=== PATIENT | female | born 1985 | race Caucasian/White ===

== ENCOUNTER 2016-06-08 04:49 | Inpatient (IN) | payer OTHER ==
[~2016-06-08] VITALS: Ht 170.2 cm; Wt 108.4 kg
[2016-06-08] MEDS ORDERED: Lactated Ringer's 1,000 ML IV PRN (05:03)
[2016-06-08] MEDS ORDERED: Sodium Chloride LOK Flush 10 mL Syringe IVFLUSH PRN (05:05)
[2016-06-08] MEDS ORDERED: Penicillin G K Inj 5,000,000 UNITS in Dextrose 5% Minibag Plus 100 ML IV ONE (05:05)
[2016-06-08] MEDS ORDERED: Oxytocin 30 Units/500 mL LR 30 UNITS in IV Premix 1 EACH IV PRN ×2 (05:05→09:20)
[2016-06-08] MEDS ORDERED: Oxytocin 10 Unit/mL Inj IM PRN ×2 (05:05→09:20)
[2016-06-08] MEDS ORDERED: Hemorrhage Kit, Post Partum XX ONE ×2 (05:05→09:20)
[2016-06-08] MEDS ORDERED: Carboprost 250 mCg/mL Inj IM PRN ×2 (05:05→09:20)
[2016-06-08] MEDS ORDERED: Methylergonovine 0.2 mg/mL Inj IM PRN ×2 (05:05→09:20)
[2016-06-08] MEDS ORDERED: Lactated Ringer's 1,000 ML IV SCH ×2 (05:45→09:17)
[2016-06-08] MEDS ORDERED: Atropine 1 mg/10 mL (Code) Syringe IVPUSH PRN (05:45)
[2016-06-08] MEDS ORDERED: fentaNYL 2 mCg/mL-Bupiv 0.125% 100 ML EPIDURAL SCH (05:45)
[2016-06-08] MEDS ORDERED: Ondansetron 2 mg/mL 2 mL Inj IVPUSH PRN (05:45)
[2016-06-08] MEDS ORDERED: Lactated Ringer's 500 ML IV ONE (05:45)
[2016-06-08] MEDS ORDERED: EPHEDrine Sulfate 50 mg/mL Inj IVPUSH PRN (05:45)
[2016-06-08 06:03] LABS: Mean Corpuscular Hemoglobin 30.6 pg (27.0-35.0); Mean Corpuscular Volume 91.7 fL (81-100)
--- NOTE | 2016-06-08 06:37 | PCM.HPANE ---
Patient Data Date of Service: Jun 08, 2016 Surgeon Admitting Provider:Babak Whitney MD Attending Provider:Babak Whitney MD Primary Care Physician:Babak Whitney MD Other Provider:Laura Marinelli Anesthesia Reason for Visit Term Labor TERM LABOR Ht/WT & BMI Weight (Kilograms): 108 Body Mass Index 37.4 Allergies Coded Allergies: No Known Allergies (Unverified Allergy, Unknown, 10/25/15) Diabetes History Hx Diabetes?: No MRSA MRSA: No Medications Hypertension Medication: No Home Meds Incl Beta Kevin: No History History of ENT Problems?: No Hx of Heart Problems?: No Hx of Respiratory Problem?: No Hx Neurologic Problems?: No Hx of GI Problems?: No Hx of Problems?: No HX of Peritoneal Dialysis: No Hx Musculoskeletal Problems?: No Hx of Psycho/Social Problems?: No Hx Surgeries?: No Hx Any Other Health Problems?: No Hx Diabetes: No Hx Alcohol Use: NoHx Substance Use: No Smoking Status: Never Smoker Have You Smoked inLast 12 mo: No Stop/Bang Treated for Sleep Apnea?: No Do You Have a CPAP Machine?: No JAZMIN Risk Assessment: Low Risk, <3 Yes Risk Assessment Category Category 1A: Patient has history of documented sleep apnea, and HAS NOT received any narcotic, sedative or anesthesia administration during this stay. Category 1B: Patient has history of documented sleep apnea, and HAS received any narcotic , sedative or anesthesia administration during this stay Category 2: Patient has SUSPECTED Obstructive Sleep Apnea, and HAS received any narcotic , sedative or anesthesia administration during this stay. Category 3: Patient has SUSPECTED Obstructive Sleep Apnea and HAS NOT received narcotic, sedative or anesthesia administration during this stay. Category 4: Outpatient in Procedural Areas with known sleep apnea or who screen positive for High Risk via the STOP/BANG questionnaire. Exam Exam General Appearance: Alert, Oriented X3, Cooperative HEENT/AIRWAY: MP 2, Neck Movement (Full), Mouth Opening (Wide) Lungs: Clear to Auscultation, Normal Air Movement Heart: Regular Rate/Rhythm, Normal S1, Normal S2 Meds/Labs/Diagnostics Labs Plt 136 Plan Impression Patient chart reviewed, patient interviewed and anesthestic plan with risks, benefits, and alternatives discussed, and informed consent obtained. NPO Status: L&D Protocol ASA Physical Status: ASA2 Mod Systemic Disease Anesthetic Plan: Epidural Bene/Risks/Altern/Consents: Yes HP Complete Prior to Induction: Yes Mehrdad Santizo MD Jun 08, 2016 05:45
--- NOTE | 2016-06-08 07:27 | PCM.HPOB ---
Subjective Referring Provider: Admitting Physician: Babak Whitney MD Primary Care Physician: Babak Whitney MD Attending Physician: Babak Whitney MD Chief Complaint Active Labor History of Present History of Present Illness 30- year old female at 41 weeks and 3 days gestation by US on 10/25/2015 showing an JG 06/03/16. LMP 08/23/2015 gives an JG of 05/29/2016. She presents to the [facility] after onset of active labor with contractions that started at approximately 02:00 this morning. [facility]. Pt is GBS positive. Denies PMH, PSH, NKDA. On Admit Pt was reported to be dialated at 5 cm and 100% effaced at -2 station. OB History: (2), Para (1) Obstetrical Complications: None Past Medical History Medical History: Denies Surgical History: Denies Hx Tobacco Use: No Past Family History Living Arrangement: with Family Genetic Screening/Counseling Genetic Screening/Counseling: Negative Review of Systems Constitutional: Y: Pain Cardiovascular: Denies: Chest Pain Respiratory: Denies: Cough Gastrointestinal: Reports: Abdominal Pain Medications Home medications Pre vitamins Allergy Coded Allergies: No Known Allergies (Unverified Allergy, Unknown, 10/25/15) Exam Vital Signs BP: 141/70, HR: 74, RR: 18, Temp 99.0 Exam Strong Contractions 3-4 min in between lasting 90 to 100 seconds. HR 130, moderate variability, category 1 tracing Objective 30 year old female presents in active labor in active labor. Constitutional: Well-developed, Well-nourished HEENT: Atraumatic Lungs: Clear to Auscultation, Normal Air Movement Heart: Exam Unremarkable, Regular Rate/Rhythm Abdomen: Gravid Extremities: No Edema Neurological/Psychiatric: Alert, Oriented X3, Cooperative, No Acute Distress Neuro: Grossly Neurologically Intact Labs/Diagnostics Labs WBC - 10.3 Hgb - 11.8 Hct - 35.4 Plt Count - 136 Maternal Blood Type: O (postitive) Hx Rho(D) Immune Globulin: No Antibody Screen: negative Group B Strep Results: Positive Rubella: Immune Lab History: Negative for: Hx Chicken Pox, Hx Gonorrhea, Hx HIV, Hx Herpes, Hx Syphilis OB Intrapartum Assessment/Plan Assessment 30 year old female presents to [facility] in active labor. Problems: (1) Active labor Plan: Continue supportive care and expectant management. Anticipate Vaginal delivery today. Pt is GBS positive, PCN loading dose given. Pt requested and received epidural with effect. Status: Acute ICD Code: [id number] (2) Qualifiers: Weeks of gestation: 41 weeks Qualified Code: O48.0 - Post-term Status: Acute ICD Code: Z33.1 Pain Management: Epidural Pain Evaluation: Adequate Pain Control Attending Statement I agree with the plan above. Patient was admitted in active labor. Blood pressure mildly elevated at admission thought likely related to pain. If BP issues continue to be a problem will evaluate with PIH labs. At this time, she is progressing normally. Epidural is in place and she is comfortable. AROM with return of moderate amount of light meconium stained amniotic fluid was completed. FHT reassuring. Anticipate normal spontaneous vaginal delivery,. MARLEEN SIMPSON DO Jun 08, 2016 06:18 Martha Zabala MD Jun 09, 2016 07:53
[2016-06-08] MEDS ORDERED: Penicillin G K Inj 3,000,000 UNITS in IV Premix 1 EACH IV SCH (08:30)
[2016-06-08] MEDS ORDERED: Sodium Chloride LOK Flush 10 mL Syringe IVFLUSH SCH (08:30)
[2016-06-08] MEDS ORDERED: oxyCODONE-Acetamin 5-325 mg Tablet PO PRN (09:20)
[2016-06-08] MEDS ORDERED: Benzocaine (Dermoplast) 20% 60 Gm Spray TOPICAL PRN (09:20)
[2016-06-08] MEDS ORDERED: Witch Hazel-Glycerin Pads TOPICAL PRN (09:20)
[2016-06-08] MEDS ORDERED: LANOlin HPA 7 Gm Ointment TOPICAL PRN (09:20)
[2016-06-08] MEDS ORDERED: Ascorbic Acid 500 mg Tablet PO SCH (17:30)
[2016-06-09 06:51] LABS: Mean Corpuscular Hemoglobin 29.8 pg (27.0-35.0); Mean Corpuscular Volume 93.2 fL (81-100)
--- NOTE | 2016-06-09 08:41 | OP ---
[address] [address] OPERATIVE REPORT PATIENT: SKY REEVES I : 1985 MR#: [id number] ADMIT: 06/08/2016 JOB ID: [id number] DATE OF SURGERY: 06/08/2016 PREOPERATIVE DIAGNOSIS(ES): 1. A 41+3 week intrauterine , in active labor. 2. Group-B Strep positive status. POSTOPERATIVE DIAGNOSIS(ES): 1. A 41+3 week intrauterine , in active labor. 2. Group-B Strep positive status. PROCEDURE PERFORMED: Spontaneous vaginal delivery of a liveborn male , born on June 08, 2016, at 0827 hours, weighing 10 pounds or 4532 g, with Apgars of 8 at one minute, 9 at five minutes. SURGEON: Martha Zabala MD USABILITY SPECIALIST: None. ANESTHESIA: Epidural and local. ESTIMATED BLOOD LOSS: 500 cc. FLUID REPLACEMENT: Crystalloid in labor. FINDINGS: Liveborn male infant with spontaneous cry and spontaneous movement of all four extremities. COMPLICATIONS: None apparent. INDICATIONS: This 30-year-old, G2, P1-0-0-1 female presented to Labor and Delivery on June 08, 2016, in active labor. She was at 41+3 weeks gestational age, with an EDC of May 29, 2016. was complicated by GBS positive status. She also was post dates as noted above. laboratory data showed blood type O positive. Antibody screen negative, rubella immune, hep B surface antigen negative, RPR, nonreactive, HIV negative, and GBS negative. The patient presented in active labor on the morning of the at 5 cm dilated. She requested an epidural, which was placed. heart tones reactive and reassuring throughout her entire time in Labor and Delivery. After she was comfortable with epidural, artificial rupture of membranes was completed on the morning of the , approximately 3 hours after admission. She did have return of a moderate amount of meconium-stained amniotic fluid. At that time, she was 7 cm. Following this, she quickly progressed to complete, and her epidural wore off quickly and she had a strong desire to put shortly thereafter. PROCEDURE: The patient was noted to be complete, so she was placed in dorsal lithotomy position, prepped and draped in the usual sterile fashion for delivery. She was asked to push, and the head delivered spontaneously in the KWASI position over an intact perineum. Nuchal cord was checked and none was noted. There was some difficulty delivery the anterior arm, which would have been the left arm, and so the patient was placed into Wai' positioning. An attempts at delivering the posterior arm were not successful. The infant delivered shortly thereafter with another attempted gentle downward traction. The anterior shoulder delivered easily, followed by the posterior shoulder, and the remainder of the was then easily delivered. After a 60 second cord clamping and delay, the cord was then clamped and cut. The was passed to the nursing team who were in attendance. Cord blood was then obtained and Pitocin was started per protocol. The placenta delivered intact spontaneously, was passed off the table. Examination of the uterus revealed that the uterus was firm with Pitocin and bimanual massage, and there were no remaining placental membranes within the uterus. Examination of the vaginal vault did not reveal any lacerations. There were two bilateral labial lacerations which were repaired with 4-0 Vicryl in a running nonlocking fashion bilaterally. Good hemostasis was noted following this, and the uterus was firm on bimanual massage. All sponge, needle, and instrument counts were correct. The patient tolerated this procedure well. Recovered in Labor and Delivery with her infant.
--- NOTE | 2016-06-09 09:13 | PCM.PNOBPP ---
Subjective Date of Service Jun 09, 2016 Post : Spontaneous Vaginal Delivery Subjective 30 year old female s/p on 06/08/16 without complication. Mother and baby doing well. Lochia: Normal Pain Management: PO pain meds Gastrointestinal: Good Appetite, No N/V, Passing Flatus Postop Activity: Ambulating Independently Group B Strep Results: Positive Rubella: Immune Blood Type: O RH Type: Positive Labs Laboratory Tests 06/09/16 06:33: White Blood Count 10.3, Red Blood Count 3.25, Hemoglobin 9.7, Hematocrit 30.3, Mean Corpuscular Volume 93.2, Mean Corpuscular Hemoglobin 29.8, Mean Corpuscular Hemoglobin Concent 32.0, Red Cell Distribution Width 13.8, Platelet Count 132 Exam Vital Signs Vital Signs BP: 128/80, HR: 85, RR: 12, Temp: 36.7 Vital Signs: VS reviewed, stable Exam Abdomen: Fundus firm (2-3 finger widths below umbilicus) : Voiding without difficulty Extremities: No tenderness/swelling Lungs: Clear to Auscultation, Normal Air Movement Heart: Exam Unremarkable, Regular Rate/Rhythm General: Alert, Oriented X3, Cooperative OB Post Assessment/Plan Assessment 30 year old female s/p spontaneous vaginal delivery with no complications , mother and baby doing well. Problems: (1) Qualifiers: Weeks of gestation: 41 weeks Qualified Code: O48.0 - Post-term Plan: Delivered baby boy 06/08/2016 at 08:27 without complication. Status: Resolved ICD Code: Z33.1 (2) Normal spontaneous vaginal delivery Plan: Continue supportive care. Mother doing well. Anticipate discharge today to [facility] status secondary to incomplete penicillin prophylactic treatment. Status: Resolved ICD Code: O80 Pain Evaluation: Adequate Pain Control Attending Statement The patient was seen and examined together with Dr. Larkin on 06/09/2016 and I agree with the history, exam and plan as outlined in the note above. / MD CALVIN Lopez GILES A DO Jun 09, 2016 09:13 Babak Whitney MD Jul 15, 2016 16:33
--- NOTE | 2016-06-09 10:11 | PCM.DC.OB ---
Obstetrical Discharge Summary Date of Service Jun 09, 2016 Date of hospital admission Jun 08, 2016 at 05:04 Date of Discharge: Jun 09, 2016 Providers Admitting Physician: Babak Whitney MD Primary Care Physician: Babak Whitney MD Attending Physician: Babak Whitney MD Problems: (1) Qualifiers: Weeks of gestation: 41 weeks Qualified Code: O48.0 - Post-term Plan: Uncomplicated delivery at 41weeks 3 days, discharge to home instable condition. Status: Resolved ICD Code: Z33.1 (2) Normal spontaneous vaginal delivery Plan: Pt gave to healthy baby boy 06/08/2016 at 08:27. Labor progressed normally and was uncomplicated, mother recovering well. Discharge to home in stable condition. Status: Resolved ICD Code: O80 Consultations Anaesthesia Brief History and Physical: 30- year old female at 41 weeks and 3 days gestation by US on 10/25/2015 showing an JG 06/03/16. LMP 08/23/2015 gives an JG of 05/29/2016. She presented to the [facility] after onset of active labor with contractions that started at approximately 02:00 morning of 06/08/2016. [facility]. Pt is GBS positive. Denies PMH, PSH, NKDA. On Admit Pt was reported to be dilated at 5 cm and 100% effaced at - 2 station. Physical Exam: Vital Signs: BP: 128/80, HR: 85, RR: 12, Temp: 36.7 Abdomen: Fundus firm (2-3 finger widths below umbilicus) : Voiding without difficulty Extremities: No tenderness/swelling Lungs: Clear to Auscultation, Normal Air Movement Heart: Exam Unremarkable, Regular Rate/Rhythm General: Alert, Oriented X3, Cooperative Hospital Course: 30 year old female Presented to [facility] on the morning of 06/08/16 in active labor at 5 cm dilation after having her membranes stripped on 06/05/2016. Her has been reported to be uncomplicated. GBS was positive and received the loading dose of PCN before delivery, second dose not delivered. Pt requested and received epidural with effect. She completed 3 hours after admission. Pt underwent spontaneous vaginal delivery without complication. Pt was mildly hypertensive on admit, though this was most likely due to pain, CMP showed normal BUN/Cr and Urine Creatine ratio was less than 0.24. Mother recovered well post delivery, ambulating independently, passing urine and gas without difficulty. pain controlled with Ibuprofen and had reported normal vaginal blood loss. Pty discharged to [facility] for additional monitoring of baby for infection secondary to incomplete penicillin prophylactic treatment administration. ([Ascorbic Acid]) 500 MG TABLET 500 MG PO BIDWM Prescribed by: MARLEEN LARKIN DO Docusate Sodium (Colace) 100 Mg Capsule 100 MG PO BID PRN PRN For Constipation Prescribed by: MARLEEN LARKIN DO Ferrous Sulfate (Feosol) 325 Mg Tablet 325 MG PO BIDWM Prescribed by: MARLEEN LARKIN DO Ibuprofen (Ibuprofen) 800 Mg Tablet 600 MG PO Q6H PRN PRN For Pain Prescribed by: MARLEEN LARKIN DO Discharge Medications: Iron, Vitamin C, Colace, Ibuprofen. Disposition Discharge to home Follow-up plan [facility] weeks Discharge Diet: No restrictions Discharge Activity-General: Pelvic Rest for 6 weeks, Try not to overdue, Be up and about, Balance rest and activity, Activity as pain allows, Activity as energy allows, No lifting >15 pounds for 2 weeks Patient instructions Please take the iron and vitamin c together for your anemia. Iron can give you constipation so you have also been given a prescription for docusate to keep you regular. You have been given a prescription for Ibuprofen. Please take one 600 mg tablet every 6 hours as needed for pain. Do not exceed (take more than) 3,200 mg of this medicine in any 24 hour period. Be sure to follow [facility] at [facility]. Pelvic rest for 6 weeks (nothing per vagina including intercourse, tampons) If you have chest pain, shortness of breath or have a swollen leg on one side please call the clinic or seek emergency care. If you have a fever greater than 100.4, please call [facility]. There is always someone prison keeper to talk to. If you have an increase in bleeding, call [facility]. If you have a lot of bleeding suddenly, especially if you have symptoms of dizziness & weakness with it, get emergency help. When you see [facility] in two weeks, you will be informed of the results of all the labs. If you start experiencing extreme depression, especially if you feel that you are a danger to yourself or your family, seek emergency help. You have been through a lot -- BE SURE TO TAKE CARE OF YOURSELF. Attending Statement: The patient was seen and examined together with Dr. Larkin on 06/09/2016 and I agree with the history, exam and plan as outlined in the note above. / MD CALVIN Lopez GILES A DO Jun 09, 2016 10:11 Babak Whitney MD Jul 15, 2016 16:32
[2016-06-09] MEDS ORDERED: IBUP800T28 PO (10:47)
[2016-06-09] MEDS ORDERED: FERR-74 PO (10:47)
[2016-06-09] MEDS ORDERED: Ascorbic Acid PO (10:47)
[2016-06-09] MEDS ORDERED: DOCU-41 PO (10:47)
--- NOTE | 2016-06-09 10:50 | PCM.DIOB ---
Obstetrical Disch Instruction Date of Service: Jun 09, 2016 Dates of Hospitalization Date of Hospital Admission Jun 08, 2016 at 05:04 Providers Admitting Physician: Babak Whitney MD Primary Care Physician: Babak Whitney MD Attending Physician: Babak Whitney MD Discharge Diagnosis Problems: (1) Qualifiers: Weeks of gestation: 41 weeks Qualified Code: O48.0 - Post-term Plan: Delivered baby boy 06/08/2016 at 08:27 without complication. Status: Resolved ICD Code: Z33.1 (2) Normal spontaneous vaginal delivery Plan: Continue supportive care. Mother doing well. Discharge today to [facility] status secondary to incomplete penicillin prophylactic treatment. Status: Resolved ICD Code: O80 Diet Discharge Diet: No restrictions Activity Discharge Activity-General: Pelvic Rest for 6 weeks, Try not to overdue, Be up and about, Balance rest and activity, Activity as pain allows, Activity as energy allows, No lifting >15 pounds for 2 weeks Dressing and Incisional Care Hygiene: May shower, NO bathtub, hot tub or whirlpool, Perineal care Additional Instructions Discharge Instructions Please take the iron and vitamin c together for your anemia. Iron can give you constipation so you have also been given a prescription for docusate to keep you regular. You have been given a prescription for Ibuprofen. Please take one 600 mg tablet every 6 hours as needed for pain. Do not exceed (take more than) 3,200 mg of this medicine in any 24 hour period. Be sure to follow up in 6 weeks at [facility]. Pelvic rest for 6 weeks (nothing per vagina including intercourse, tampons) If you have chest pain, shortness of breath or have a swollen leg on one side please call the clinic or seek emergency care. If you have a fever greater than 100.4, please call [facility]. There is always someone director of instructional technology to talk to. If you have an increase in bleeding, call [facility]. If you have a lot of bleeding suddenly, especially if you have symptoms of dizziness & weakness with it, get emergency help. When you see [facility] in two weeks, you will be informed of the results of all the labs. If you start experiencing extreme depression, especially if you feel that you are a danger to yourself or your family, seek emergency help. You have been through a lot -- BE SURE TO TAKE CARE OF YOURSELF. Follow Up Plan Follow Up Plan [facility] in [facility] 6 weeks Follow-up appointment: Weeks (6) MARLEEN SIMPSON DO Jun 09, 2016 10:50
[2016-06-09 11:09] VITALS: BP 128/80; PULSE 85; RESP 18
== END 2016-06-09 14:12 | disposition home or self-care (01) | DRG 775 ==
LOC: FBCO 04:49 → FBC 05:04
PROVIDERS: ADMIT Obstetrics & Gynecology; ATTEND Obstetrics & Gynecology
PROC: 10E0XZZ Delivery of Products of Conception, External Approach (ICD-10-PCS; principal; 2016-06-08)
PROC: 10907ZC Drainage of Amniotic Fluid, Therapeutic from Products of Conception, Via Natural or Artificial Opening (ICD-10-PCS; 2016-06-08)
PROC: 0HQ9XZZ Repair Perineum Skin, External Approach (ICD-10-PCS; 2016-06-08)
DX: O48.0 Post-term pregnancy (principal); Z37.0 Single live birth; O99.824 Streptococcus B carrier state complicating childbirth; Z3A.41 41 weeks gestation of pregnancy; O77.0 Labor and delivery complicated by meconium in amniotic fluid; O70.0 First degree perineal laceration during delivery

== ENCOUNTER 2016-07-01 22:01 | Emergency (ER) | payer OTHER ==
[~2016-07-01 22:01] MED LIST: Ascorbic Acid PO; DOCU-41 PO; FERR-74 PO; IBUP800T28 PO
[2016-07-01 22:05] VITALS: BP 134/94; PULSE 116; O2SAT 98
--- NOTE | 2016-07-01 22:25 | ED.REPORT ---
HPI- Female Date of Service Jul 01, 2016 ED Provider: MD Ann Marie This is a 31 year old female who is 3 weeks post after vaginal delivery presenting to the emergency department complaining of vaginal bleeding that began just occurred just prior to arrival. Pt states she went to the restroom and noticed a large amount of blood. Denies presence of tissue in the discharge. Denies recent sexual intercourse. She is breast feeding at this time. Nursing Notes Stated Complaint: BLEEDING 3 WKS POST DELIVERY Chief Complaint: Female Abdominal Pain Nursing Notes Reviewed: Yes Allergies: Coded Allergies: No Known Allergies (Unverified Allergy, Unknown, 10/25/15) Scheduled ([Ascorbic Acid]) 500 MG TABLET 500 MG PO BIDWM Ferrous Sulfate (Feosol) 325 Mg Tablet 325 MG PO BIDWM Scheduled PRN Docusate Sodium (Colace) 100 Mg Capsule 100 MG PO BID PRN PRN For Constipation Ibuprofen (Ibuprofen) 800 Mg Tablet 600 MG PO Q6H PRN PRN For Pain General Time Seen by MD: 22:24 Chief Complaint Vaginal bleeding... Hx Obtained From: Patient Arrived By: Walk-in Sudden in Onset?: Yes Onset Occurred: Just prior to arrival Symptom Duration: Since onset Severity: Current: No pain currently Recent Healthcare: No recent doctor visit, No recent hospitalization Similar Sx Previous: No Past Medical History Past Surgical History Denies Smoking History Never Smoker Ambulatory Status Independent Review of Systems Constitutional: Denies: Chills, Fever GI: Denies: Abdominal pain, Constipation, Diarrhea, Nausea, Rectal pain Female: Reports: Vaginal bleeding - abnl Neurologic: Denies: Headache Complete sys rev & neg: except as marked. Physical Exam Initial Vital Signs Vital Signs (First) Date Time Temp Pulse Resp B/P Pulse Ox O2 Delivery O2 Flow Rate FiO2 07/01/16 22:05 37.2 116 134/94 98 Room Air 07/02/16 00:30 18 Initial VS: Reviewed General/Constitutional: Well-developed, Well-nourished Head / Eyes: Atraumatic, Normocephalic, PERRL ENT: Mucous membranes moist, Conjunctiva normal, No scleral icterus Neck: Supple, Non-tender, Full range of motion Respiratory: Breath sounds normal, Clear to auscultation, No respiratory distress Cardiovascular: Regular rate & rhythm, Heart sounds normal, Intact distal pulses Abdomen / GI: Soft, Non-tender, No guarding, No rebound, No distention Extremities: Vascular intact, Neuro intact, No swelling, No tenderness Skin: Warm, Dry, No cyanosis Neurologic: Alert, Oriented, Nonfocal Psychiatric: Mood/affect normal, Behavior normal, Normal thought content Female Genitourinary: Key Holder present Clots present in vagina with tissue present at cervical os that was carefully removed. Os was observed, there was no further bleeding. On repeat exam, scant bleeding present, no cervical motion tenderness, no uterine tenderness, no tissues present. Interpretation & Diagnostics Lab Results Interpretation Result Diagram: 07/01/16224907/01/162249 Test 07/01/16 22:50 White Blood Count 6.0th/mm3 (3.8-10.1) Red Blood Count 4.10mil/mm3 (3.90-5.20) Hemoglobin 12.2g/dL (12.0-15.6) Hematocrit 37.1% (35.0-46.0) Mean Corpuscular Volume 90.5fL (81-100) Mean Corpuscular Hemoglobin 29.8pg (27.0-35.0) Mean Corpuscular Hemoglobin Concent 32.9% (32.0-37.0) Red Cell Distribution Width 12.1% (12.3-15.4) Platelet Count 236bil/L (150-400) Neutrophils (%) (Auto) 54.4% (40-74) Lymphocytes (%) (Auto) 35.7% (14-46) Monocytes (%) (Auto) 7.7% (4-12) Eosinophils (%) (Auto) 1.7% (0-5) Basophils (%) (Auto) 0.3% (0-3) Sodium Level 138mEq/L (134-144) Potassium Level 3.8mEq/L (3.5-5.2) Chloride Level 99mEq/L (97-108) Carbon Dioxide Level 24mmol/L (18-29) Blood Urea Nitrogen 16mg/dL (6-20) Creatinine 0.51mg/dL (0.57-1.00) Estimat Glomerular Filtration Rate 201mL/min (>59) Glucose Level 102mg/dL (60-99) Calcium Level 9.0mg/dL (8.5-10.1) Total Bilirubin 0.2mg/dL (0.0-1.2) Aspartate Amino Transf (AST/SGOT) 22U/L (0-50) Alanine Aminotransferase (ALT/SGPT) 18U/L (0-32) Alkaline Phosphatase 111U/L (25-150) Total Protein 7.2g/dL (6.4-8.4) Albumin 4.2g/dL (3.4-5.0) HCG Beta Subunit 1.13mIU/mL Hold George Top Tube Received (Received) Re-Eval/Medical Decision Re-Evaluation/Progress #1: Time of Eval: 00:05 Re-Evaluation/Progress Note: exam Re-Evaluation/Progress #2: Time of Eval: 00:19 Re-Evaluation/Progress Note: repeat exam, plan for d/c Consultation : Referral / Consult Name: Hunter Vaughan MD Call Returned at: 00:11 Supervisor Nuclear Medicine: Agrees with eval, Agrees with plan Note: consult with on-call for pt's music artist, plan for close follow up. Counseled Regarding: Diagnosis, Lab results, Need for follow-up, When/why to return to ED Discharge & Departure Impression: Primary Impression: bleeding hemorrhage type: unspecified Qualified Code: O72.1 - Other immediate hemorrhage Disposition: Home Discharge Condition All VS Reviewed: Yes Condition: Stable Additional Instructions: Your examination was reassuring today. Take adequate rest tonight. If you are soaking more than 1 pad per hour for 3 hours, return to the emergency department. Follow-up with Dr. Whitney, call tomorrow to schedule an appointment for follow-up. Return to the emergency department if you develop any new or worsening symptoms such as pain, fever, or increased bleeding. Referrals: Babak Whitney MD (PCP) Scribe Attestation Portions of this note were transcribed by Benito Lerma. I, Dr. Jesus personally performed the history, physical exam and medical decision-making; I reviewed and confirmed the accuracy of the information in the transcribed note. Signed by Coleen Atkins, 07/01/2016 at 23:30. copies to: Babak Whitney MD, Todd P DO Jul 01, 2016 22:25 BENITO LERMA Jul 01, 2016 22:40
[2016-07-01 23:04] LABS: BASOPHILS % (AUTO) 0.3 % (0-3); EOSINOPHILS % (AUTO) 1.7 % (0-5); MONOCYTES % (AUTO) 7.7 % (4-12); Mean Corpuscular Hemoglobin 29.8 pg (27.0-35.0); Mean Corpuscular Volume 90.5 fL (81-100); NEUTROPHILS % (AUTO) 54.4 % (40-74); Platelet Count 236 bil/L (150-400)
[2016-07-02 00:30] VITALS: BP 121/83; PULSE 97; RESP 18; O2SAT 98
== END 2016-07-02 00:29 | disposition home or self-care (01) ==
LOC: SED 22:01
DX: O72.1 Other immediate postpartum hemorrhage (principal)